=== PATIENT | male | born 1980 | race Caucasian/White ===

== ENCOUNTER 2017-06-05 10:30 | Emergency (ER) | payer SELFPAY ==
[2017-06-05 10:32] VITALS: BP 208/128; PULSE 72; RESP 20; TEMP 36.6; O2SAT 98; BMI 39.9
--- NOTE | 2017-06-05 10:37 | CT_ITS ---
STUDY: CT ABDOMEN AND PELVIS WITHOUT CONTRAST REASON FOR EXAM: Male, 37 years old. Right flank pain. RADIATION DOSAGE (If Supplied By Facility): CTDIvol = ( 24.18 ) mGy, DLP = ( 1353.14 ) mGycm TECHNIQUE: Transaxial images were obtained from the dome of the diaphragm to the symphysis pubis without oral contrast, and without intravenous contrast. Sagittal and coronal images were reconstructed. Individualized dose optimization techniques were used for this CT. COMPARISON: None. FINDINGS: Small calcified granulomas at the lung bases. The visualized portions of the heart are within normal limits. Normal liver. Normal gallbladder and extrahepatic biliary system. Normal spleen. Normal pancreas. Normal bilateral adrenal glands. Mild right hydronephrosis and hydroureter due to a 3 mm calculus at the right ureterovesical junction as it enters the base of the bladder. Normal left kidney. There is a small hiatal hernia. Normal small intestine. Normal colon. The appendix is visualized and appears normal. Normal abdominal aorta. Normal inferior vena cava. Normal retroperitoneum. Normal urinary bladder. There is a small umbilical hernia containing fat. Normal osseous structures. CT/Abdomen/Pelvis without Cont IMPRESSION: Mild degree of right hydronephrosis and hydroureter due to a 3 mm cuts at the right ureterovesical junction as it enters the bladder. Electronically Signed: Saeed Walton MD at 11:25 EST Tel [phone], Service support ,
--- NOTE | 2017-06-05 10:41 | ED.VISSUMM ---
- ER Visit Summary Date of Service: 06/05/17 Chief Complaint: Pain History of Present Illness: The patient is a 37 M with no significant primary medical history who presents to the emergency department with right-sided flank pain. Patient symptoms began rather acutely about a half an hour ago. He describes a sharp stabbing pain in his right upper quadrant into his right flank. He states over the past 2 days, he is noted some pain with urination and a little more frequency. He denies any history of kidney stone. He states the pain comes in waves and makes him acutely nauseated and he did have one episode of vomiting. He denies any fevers or chills. The pain does not radiate. He denies any pain in the testicles. He has not found anything to improve the symptoms. He denies any history of prior surgery. Physical Examination: Vital signs reviewed General: Well-nourished, well-developed Head: Normocephalic, atraumatic Eyes: Pupils equal and reactive, extraocular muscles intact Neck, supple, no lymphadenopathy Heart: Regular rate and rhythm Respiratory: No distress, clear bilaterally Abdomen: Soft, nontender, nondistended, no peritoneal signs Back: Nontender along spinous process, right CVA tenderness Extremities: Nontender, no edema, no cords Skin: Normal color no rash Neuro: Alert and oriented, no focal or lateralizing deficits Test Results: [] Emergency Department Course and Treatment: The patient's pain did radiate into his right flank. He was without tenderness in the anterior abdomen. He did have mild right-sided CVA tenderness. He was established. The patient was treated with analgesics, antiemetics, and anti-inflammatories. He did have some mild improvement of pain. His analgesics were redosed the patient was much more comfortable. Labs are unremarkable. CT does show a 3 mm stone at the right UVJ with mild hydro-. On reevaluation the patient is much more comfortable than arrival. He will be treated with Flomax, anti-inflammatories, analgesics, and Zofran. He will be given follow-up with urology. He was counseled on concerning symptoms and reasons to return. The patient will be discharged home. Treatment Plan: [] Disposition: Discharge Impression: 1. 3 mm right UVJ stone This note was generated with [employer] software. It may contain incorrect words, spelling, and punctuation that were not noted in review of the chart prior to signing ED Disposition - Plan for ED Patient: Chief Complaint: Flank Pain Instructions: ED Stone Renal W Colic Prescriptions: Oxycodone HCl/Acetaminophen [Percocet 5/325] 1 tab PO Q6H PRN PRN 3 Days #12 tab PRN Reason: Pain Ondansetron [Zofran Odt] 4 mg PO Q8H PRN PRN #10 tab PRN Reason: Nausea Tamsulosin HCl [Flomax] 0.4 mg PO DAILY 14 Days cap Referrals: Avtar Larson MD [STAFF PHYSICIAN] -
[2017-06-05 10:49] LABS: Absolute Lymphocyte Count 3.49 X10^3/ul (0.83-4.51); Absolute Neutrophil Count 4.5 X10^3/uL (2.0-7.7); Basophil# 0.01 X10^3/uL; Basophil% 0.1 % (0-1); Eosinophil# 0.54 X10^3/uL; Eosinophils% 5.8 % (0-5); Hematocrit 45.4 % (40-54); Hemoglobin 14.8 g/dl (13.0-16.5); Lymphocyte # 3.49 X10^3/ul (4.0); Lymphocyte % 37.8 % (19-41); Mean Corp Hgb Conc 32.6 g/gl (32-36); Mean Corpuscular Hgb 27.4 pg (27.0-32.0); Mean Corpuscular Volume 84.1 fL (80-94); Mean Platelet Vol. 10.7 fl (6.2-12.0); Monocyte# 0.69 X10^3/uL; Monocyte% 7.5 % (0-10); Neutrophil # 4.49 X10^3/uL (2.7-7.7); Neutrophil % 48.6 % (47-70); POSITIVE COUNT NO; POSITIVE DIFFERENTIAL NO; POSITIVE MORPHOLOGY NO; Platelet Count 288 K/mm3 (150-450); RBC Distribution Width CV 14.5 % (11.6-14.6); RBC Distribution Width SD 44.4 fl (35.1-43.9); White Blood Count 9.2 K/mm3 (4.4-11.0)
[2017-06-05] MEDS: Ondansetron 4 MG/2 ML Vial IV (10:50)
[2017-06-05] MEDS: 0.9% Normal Saline 1,000 ML 250 ML IV (10:50)
[2017-06-05] MEDS: Ketorolac 30 MG/ML Syringe IV (10:50)
[2017-06-05 11:06] LABS: ALB/GLOB Ratio 0.8 RATIO (0.9-2.4); AST(SGOT) 20 U/L (15-37); Alanine Aminotransfer ALT/SGPT 47 U/L (16-61); Albumin, Serum 3.8 g/dL (3.2-5.0); Alkaline Phosphatase 104 U/L (45-117); Anion Gap 10 (5-15); BUN 12 mg/dL (7-18); BUN/Creat Ratio 10.6 RATIO (10-20); Calcium,Total 9.5 mg/dL (8.5-10.1); Chloride 104 mmol/L (98-107); Creatinine, Serum 1.13 mg/dL (0.70-1.30); EST Glomerular Filtration Rate 78 mL/min (>60); Est Glom Filt Rate - Afr Amer 94 mL/min (>60); Estimated Creatinine Clearance 108.01 ml/min; Globulin 4.5 g/dL (2.2-4.2); Glucose 111 mg/dL (74-106); Lipase 108 U/L (73-393); Potassium 3.5 mmol/L (3.5-5.1); Protein, Total 8.3 g/dL (6.4-8.2); Sodium Level 140 mmol/L (136-145)
[2017-06-05 12:19] VITALS: BP 119/76; PULSE 79; RESP 14; O2SAT 99
[2017-06-05 12:36] LABS: Color, Urine Yellow (Yellow); Glucose, Dipstick Normal (Normal); Ketone-Dipstick 5 mg/dl (Negative); Leukocyte Esterase-Dipstick 25 /ul (Negative); Nitrite-Dipstick Negative (Negative); Occult Blood-Urine 25 /ul (Negative); Protein-Dipstick 30 mg/dl (Negative); Urine Bilirubin Dipstick Negative (Negative); Urine Clarity Clear (Clear); Urine Urobilinogen Normal (Normal)
[2017-06-05 12:43] LABS: Red Blood Cells-Urine 0-5 SEEN /hpf (0-5); White Blood Cells 0-5 SEEN /hpf (0-5)
[2017-06-05 12:44] LABS: Bacteria 1+ /hpf (None Seen); Mucous, Urine 2+ /hpf (<or=2+); Squamous Epithelial Cells - UA 0-5 SEEN /hpf (0-5)
== END 2017-06-05 12:30 | disposition home or self-care (01) ==
LOC: ED 11:24
PROVIDERS: Emergency Provider Emergency Medicine
DX: N13.2 Hydronephrosis with renal and ureteral calculous obstruction (principal); E66.9 Obesity, unspecified; Z68.39 Body mass index [BMI] 39.0-39.9, adult
CPT/HCPCS: 74176; 80053; 81001; 83690; 85025; 96361; 96374; 96375; 96376; 99284; J7030; A4216; J2405